=== PATIENT | male | born 1960 | race African-American/Black ===

== ENCOUNTER 2017-11-18 09:19 | Emergency (ER) | payer OTHER ==
[2017-11-18] MEDS: HYDROcodone/APAP 5/325MG 1 TAB TABLET PO ×2 (11:09)
== END 2017-11-18 11:12 | disposition home or self-care (01) ==
LOC: ER 09:19
DX: M79.605 Pain in left leg (principal); R20.2 Paresthesia of skin; E11.9 Type 2 diabetes mellitus without complications; Z88.0 Allergy status to penicillin
CPT/HCPCS: 73552; 93971; 99284-25